=== PATIENT | male | born 2000 | race African-American/Black ===

== ENCOUNTER 2024-05-08 00:30 | Inpatient (IN) | payer OTHER ==
[~2024-05-08] VITALS: Ht 180.3 cm; Wt 97.7 kg
[2024-05-08 01:48] LABS: HEMATOCRIT 45.2 % (42.0-52.0); HEMOGLOBIN 14.8 g/dl (13.5-17.5); MEAN CORPUSCULAR HGB CONC 32.7 g/dl (32.0-36.5); MEAN CORPUSCULAR VOLUME 88.5 fl (80.0-96.0); PLATELET COUNT, AUTOMATED 157 10^3/uL (150-450); RED BLOOD COUNT 5.11 10^6/uL (4.30-6.10); WHITE BLOOD COUNT 8.5 10^3/uL (4.0-10.0)
[2024-05-08 02:09] LABS: AMPHETAMINES LEVEL URINE NEGATIVE (NEGATIVE); BARBITURATES URINE NEGATIVE (NEGATIVE); BENZODIAZEPINES URINE NEGATIVE (NEGATIVE); CANNABINOIDS URINE NEGATIVE (NEGATIVE); COCAINE METABOLITE URINE NEGATIVE (NEGATIVE); METHADONE URINE NEGATIVE (NEGATIVE); OPIATES URINE NEGATIVE (NEGATIVE); PHENCYCLIDINE URINE NEGATIVE (NEGATIVE)
[2024-05-08 02:14] LABS: ETHYL ALCOHOL (ETHANOL) < 0.003 % (0.000-0.010)
[2024-05-08 02:16] LABS: ALBUMIN 3.8 G/DL (3.2-5.2); ALKALINE PHOSPHATASE 73 U/L (46-116); ALT/SGPT 11 U/L (7.0-40); AST/SGOT 11 U/L (<34); BILIRUBIN,DIRECT 0.1 MG/DL (<0.4); BILIRUBIN,TOTAL 0.4 MG/DL (0.3-1.2); BLOOD UREA NITROGEN 19 MG/DL (9-23); CALCIUM LEVEL 9.6 MG/DL (8.5-10.1); CARBON DIOXIDE LEVEL 25 MMOL/L (20-31); CHLORIDE LEVEL 106 MMOL/L (98-107); CREATININE FOR GFR 0.89 MG/DL (0.70-1.30); GLOMERULAR FILTRATION RATE > 60.0 (>60); GLUCOSE, FASTING 91 MG/DL (60-100); SALICYLATE LEVEL < 3.0 MG/DL (<30); SODIUM LEVEL 137 MMOL/L (136-145)
[2024-05-08 02:18] LABS: THYROID STIMULATING HORMONE 2.722 uIU/ML (0.55-4.78)
[2024-05-08] MEDS ORDERED: VENTAER INH (08:57)
[2024-05-08] MEDS ORDERED: HOME MED LIST COMPLETE! XX SCH (09:00)
[2024-05-08] MEDS ORDERED: diphenhydrAMINE 25MG CAP PO PRN (10:20)
[2024-05-08] MEDS ORDERED: IBUPROFEN 400MG TAB PO PRN (10:20)
[2024-05-08] MEDS ORDERED: MOM 30ML SUSPENSION UDC PO PRN (10:20)
[2024-05-08] MEDS ORDERED: MAALOX 30 ML SUSP *UDC PO PRN (10:20)
[2024-05-08] MEDS ORDERED: ACETAMINOPHEN TAB 650MG DOSE (2X325MG) PO PRN (10:20)
[2024-05-08] MEDS ORDERED: traZODone 50 MG TAB PO PRN (10:20)
[2024-05-08 14:53] VITALS: BP 129/78; TEMP 97.5; O2SAT 100
[2024-05-08 14:58] VITALS: BP 138/74; TEMP 97.7; O2SAT 99
[2024-05-08] MEDS: EPINEPHrine INJ 1 MG/ML 1ML AMP IM STA (18:23)
[2024-05-08 18:28] VITALS: BP 160/80; TEMP 97; O2SAT 100
[2024-05-09 06:33] VITALS: BP 139/71; TEMP 97.8; O2SAT 99
[2024-05-09] MEDS: FLUZONE VACCINE TRIVALENT PF(2024-25) 0.5ML SYRINGE IM.IMMUN ONE (09:23)
[2024-05-09 16:09] VITALS: BP 131/58; TEMP 97.8; O2SAT 100
[2024-05-10 06:13] VITALS: BP 126/61; TEMP 97.1; O2SAT 98
[2024-05-10] MEDS: NICOTINE 21MG/24HR 1 EA TRANSDERMAL TD SCH (10:58)
[2024-05-10] MEDS ORDERED: ALBUTEROL 90 MCG/ACT 8GM HFA INHALER INH PRN (14:25)
[2024-05-10 15:28] VITALS: BP 133/82; TEMP 97.4; O2SAT 99
[2024-05-11 06:39] VITALS: BP 126/62; TEMP 97.8; O2SAT 99
[2024-05-11 14:45] VITALS: BP 147/72; TEMP 98.2; O2SAT 98
[2024-05-12 06:46] VITALS: BP 130/82; TEMP 97.9; O2SAT 98
== END 2024-05-12 08:30 | disposition home or self-care (01) | DRG 881 ==
LOC: M ED 00:30 → M ED INP 10:20 → M PSY 13:16
PROVIDERS: ADMIT Psychiatry & Neurology Psychiatry; ATTEND Psychiatry & Neurology Psychiatry
DX: F32.A Depression, unspecified (principal); R45.851 Suicidal ideations; Z62.811 Personal history of psychological abuse in childhood; F43.23 Adjustment disorder with mixed anxiety and depressed mood; J45.909 Unspecified asthma, uncomplicated; E66.9 Obesity, unspecified; Z91.018 Allergy to other foods; Z68.30 Body mass index [BMI] 30.0-30.9, adult

== ENCOUNTER 2024-05-19 05:45 | Inpatient (IN) | payer OTHER ==
[~2024-05-19] VITALS: Ht 180.3 cm; Wt 95.5 kg
[~2024-05-19 05:45] MED LIST: VENTAER INH
[2024-05-19 06:26] LABS: HEMATOCRIT 45.7 % (42.0-52.0); HEMOGLOBIN 14.9 g/dl (13.5-17.5); MEAN CORPUSCULAR HEMOGLOBIN 28.8 pg (27.0-33.0); MEAN CORPUSCULAR HGB CONC 32.6 g/dl (32.0-36.5); MEAN CORPUSCULAR VOLUME 88.2 fl (80.0-96.0); PLATELET COUNT, AUTOMATED 153 10^3/uL (150-450); RED BLOOD COUNT 5.18 10^6/uL (4.30-6.10)
[2024-05-19 06:54] LABS: ETHYL ALCOHOL (ETHANOL) < 0.003 % (0.000-0.010)
[2024-05-19 06:56] LABS: ALBUMIN 3.9 G/DL (3.2-5.2); ALKALINE PHOSPHATASE 66 U/L (46-116); ALT/SGPT 12 U/L (7.0-40); AST/SGOT 9 U/L (<34); BILIRUBIN,DIRECT 0.1 MG/DL (<0.4); BILIRUBIN,TOTAL 0.5 MG/DL (0.3-1.2); BLOOD UREA NITROGEN 27 MG/DL (9-23); CALCIUM LEVEL 9.6 MG/DL (8.5-10.1); CARBON DIOXIDE LEVEL 23 MMOL/L (20-31); CHLORIDE LEVEL 111 MMOL/L (98-107); CREATININE FOR GFR 0.84 MG/DL (0.70-1.30); GLOMERULAR FILTRATION RATE > 60.0 (>60); GLUCOSE, FASTING 96 MG/DL (60-100); POTASSIUM SERUM 4.5 MMOL/L (3.5-5.1); SALICYLATE LEVEL < 3.0 MG/DL (<30); SODIUM LEVEL 140 MMOL/L (136-145); THYROID STIMULATING HORMONE 1.681 uIU/ML (0.55-4.78); TOTAL PROTEIN 7.2 G/DL (5.7-8.2)
[2024-05-19 09:08] LABS: AMPHETAMINES LEVEL URINE NEGATIVE (NEGATIVE); BARBITURATES URINE NEGATIVE (NEGATIVE); BENZODIAZEPINES URINE NEGATIVE (NEGATIVE); COCAINE METABOLITE URINE NEGATIVE (NEGATIVE); METHADONE URINE NEGATIVE (NEGATIVE); OPIATES URINE NEGATIVE (NEGATIVE)
[2024-05-19 09:09] LABS: CANNABINOIDS URINE NEGATIVE (NEGATIVE); PHENCYCLIDINE URINE NEGATIVE (NEGATIVE)
[2024-05-19] MEDS ORDERED: HOME MED LIST COMPLETE! XX SCH (10:30)
[2024-05-19] MEDS ORDERED: ACETAMINOPHEN 325 MG TAB PO PRN (11:20)
[2024-05-19] MEDS ORDERED: MAALOX 30 ML SUSP *UDC PO PRN (11:20)
[2024-05-19] MEDS ORDERED: IBUPROFEN 400MG TAB PO PRN (11:20)
[2024-05-19] MEDS ORDERED: MOM 30ML SUSPENSION UDC PO PRN (11:20)
[2024-05-19 13:05] VITALS: BP 135/73; TEMP 97.5; O2SAT 100
[2024-05-20 06:43] VITALS: BP 134/61; TEMP 97.3; O2SAT 99
[2024-05-20] MEDS: ESCITALOPRAM OXALATE 10 MG TAB (LEXAPRO) PO SCH (11:39)
[2024-05-20 15:25] VITALS: BP 149/85; TEMP 97.9; O2SAT 98
[2024-05-20] MEDS ORDERED: ALBUTEROL 90 MCG/ACT 8GM HFA INHALER INH PRN (16:50)
[2024-05-20] MEDS: NICOTINE 21MG/24HR 1 EA TRANSDERMAL TD SCH (18:46)
[2024-05-20] MEDS: diphenhydrAMINE 25MG CAP PO PRN (20:44)
[2024-05-21 06:20] VITALS: BP 124/58; TEMP 97.1; O2SAT 99
[2024-05-21 16:35] VITALS: BP 133/75; TEMP 97.8; O2SAT 99
[2024-05-21] MEDS: traZODone 50 MG TAB PO PRN (20:35)
[2024-05-22 06:09] VITALS: BP 130/68; TEMP 97.5; O2SAT 99
[2024-05-22] MEDS: ESCITALOPRAM OXALATE 10 MG TAB (LEXAPRO) PO SCH (08:32)
[2024-05-22 15:39] VITALS: BP 157/77; TEMP 97.9; O2SAT 98
[2024-05-23 06:17] VITALS: BP 143/65; TEMP 98; O2SAT 99
[2024-05-23 17:00] VITALS: BP 140/76; TEMP 97.8
[2024-05-24 06:20] VITALS: BP 134/75; TEMP 97.8; O2SAT 97
[2024-05-24] MEDS ORDERED: TRAZ-252 PO (08:43)
[2024-05-24] MEDS ORDERED: LEXA1TAB PO (08:43)
[2024-05-24] MEDS ORDERED: AMLO25TA PO (08:43)
[2024-05-24] MEDS ORDERED: HYDR1CAP25 PO (08:45)
[2024-05-24 08:53] VITALS: BP 124/88
[2024-05-24 08:54] VITALS: BP 124/88
== END 2024-05-24 10:56 | disposition home or self-care (01) | DRG 885 ==
LOC: M ED 05:45 → M ED INP 11:16 → M PSY 13:07
PROVIDERS: ADMIT Psychiatry & Neurology Psychiatry; ATTEND Psychiatry & Neurology Psychiatry
DX: F33.9 Major depressive disorder, recurrent, unspecified (principal); R45.851 Suicidal ideations; Z91.018 Allergy to other foods; F17.290 Nicotine dependence, other tobacco product, uncomplicated; I10 Essential (primary) hypertension; J45.909 Unspecified asthma, uncomplicated

== ENCOUNTER → 2024-07-10 | Outpatient (CLI) | payer OTHER ==
[~2024-07-10] MED LIST changes: +AMLO25TA PO; +HYDR1CAP25 PO; +LEXA1TAB PO; +TRAZ-252 PO
== END ==
LOC: M CARPUL 10:24
PROVIDERS: ATTEND Physician Assistant
DX: R06.02 Shortness of breath (principal)